=== PATIENT | female | born 2000 | race African-American/Black ===

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

== ENCOUNTER 2018-03-19 10:50 | Emergency (ER) | payer OTHER ==
[2018-03-19 11:49] LABS: BASO % 0.6 % (0.0-1.0); EOS # 0.1 10^3/uL (0.0-0.50); HEMATOCRIT 37.6 % (36.0-47.0); HEMOGLOBIN 12.6 g/dl (12.0-15.5); IMMATURE GRANULOCYTE % 0.5 % (0-3.0); LYMPH # 2.1 10^3/uL (1.5-6.5); LYMPH % 32.9 % (24.0-44.0); MEAN CORPUSCULAR HEMOGLOBIN 30.6 pg (27.0-33.0); MEAN CORPUSCULAR HGB CONC 33.5 g/dl (32.0-36.5); MEAN CORPUSCULAR VOLUME 91.3 fl (80.0-96.0); MONO # 0.6 10^3/uL (0.0-0.8); NEUTROPHILS # 3.6 10^3/uL (1.8-7.7); PLATELET COUNT, AUTOMATED 190 10^3/uL (150-450); RED BLOOD COUNT 4.12 10^6/uL (4.00-5.40); RED CELL DISTRIBUTION WIDTH 12.9 % (11.5-14.5); WHITE BLOOD COUNT 6.5 10^3/uL (4.0-10.0)
[2018-03-19 11:58] LABS: KETONE, URINE AUTO RFX NEGATIVE (NEGATIVE); LEUKOCYTE ESTERASE UR AUTO RFX NEGATIVE (NEGATIVE); MUCUS, URINE RFX SMALL (NEGATIVE); NITRITE, URINE AUTO RFX NEGATIVE (NEGATIVE); RBC, URINE AUTO RFX 1 /HPF (0-3); SPECIFIC GRAVITY UR AUTO RFX 1.017 (1.002-1.035); SQUAM EPITHELIAL CELL UR AURFX 3 /HPF (0-6); WBC, URINE AUTO RFX 0 /HPF (0-3)
[2018-03-19 12:25] LABS: HCG, SERUM QUANTITATIVE 19678 MIU/ML
== END 2018-03-19 13:05 | disposition home or self-care (01) ==
LOC: M ED 10:50
DX: O26.891 Other specified pregnancy related conditions, first trimester (principal); R10.2 Pelvic and perineal pain; Z3A.01 Less than 8 weeks gestation of pregnancy
CPT/HCPCS: 76801

== ENCOUNTER → 2018-03-27 | Outpatient (CLI) | payer OTHER | LOC: M LAB 21:06 | DX: Z01.83 Encounter for blood typing (principal) ==

== ENCOUNTER 2018-09-13 11:25 | Outpatient (CLI) | payer OTHER ==
[~2018-09-13] VITALS: Ht 157.5 cm; Wt 69.9 kg
[2018-09-13] MEDS ORDERED: LR 1,000 ML IV ONE (12:15)
[2018-09-13] MEDS ORDERED: ONDANSETRON 4MG/2ML VIAL (J2405) IV ONE (12:15)
--- NOTE | 2018-09-13 12:23 | IPNPDOC ---
Text Note Date of Service The patient was seen on 09/13/18. NOTE 18 yo at 31+3 weeks gestation presented to L&D with the complaint of n/v and diarrhea. She has had persistent n/v throughout her but it has been worse the last couple days. She reports at around 10 or 11pm last night she started having diarrhea as well. She denies any blood in her stool. She also denies any fevers/chils, SOB, recent travel, or sick contacts. She also denies any consumption of unusual or different foods than usual. She has not taken nausea medication during her at all. She denies any obstetric complaints such as vaginal bleeding, leakage of fluid, or decreased movement. Vitals - VSS, afebrile, normotensive, non tachycardic General - AAOX3, sitting up in bed, NAD Abdomen - Gravid uterus, no fundal tenderness Extremities - No edema FHR: BL 135, moderate variability, +accels, no decels, Cat I tracing Labs: CMP - Unremarkable. Suspect likely viral syndrome as cause of symptoms. No signs of acute bacterial systemic infection. Symptoms improved and resolved after IV hydration and IV antiemetics. She was able to tolerate PO. status remained reassuring. She was discharged home with return precautions. All patient questions answered. DO BRANDEN Levin CHRISTOPHER J. DO Sep 13, 2018 12:23
[2018-09-13 12:25] VITALS: BP 114/61
[2018-09-13 13:05] LABS: ALT/SGPT 23 U/L (12-78); BILIRUBIN,TOTAL 0.4 MG/DL (0.2-1.0); BLOOD UREA NITROGEN 6 MG/DL (7-18); CALCIUM LEVEL 8.3 MG/DL (8.5-10.1); CARBON DIOXIDE LEVEL 23 MEQ/L (21-32); CHLORIDE LEVEL 108 MEQ/L (98-107); CREATININE FOR GFR 0.66 MG/DL (0.55-1.30); GLUCOSE, FASTING 69 MG/DL (70-100); POTASSIUM SERUM 3.6 MEQ/L (3.5-5.1); SODIUM LEVEL 138 MEQ/L (136-145); TOTAL PROTEIN 7.4 GM/DL (6.4-8.2)
== END 2018-09-13 14:13 | disposition home or self-care (01) ==
LOC: M LDO 11:25
PROVIDERS: ATTEND Obstetrics & Gynecology
DX: O21.2 Late vomiting of pregnancy (principal); O99.89 Other specified diseases and conditions complicating pregnancy, childbirth and the puerperium; R19.7 Diarrhea, unspecified; Z3A.31 31 weeks gestation of pregnancy
CPT/HCPCS: 36415; 59025; 80053; 96360; 96361; 96374; G0378; G0463; J2405

== ENCOUNTER 2018-11-04 00:22 | Inpatient (IN) | payer OTHER ==
[~2018-11-04] VITALS: Ht 157.5 cm; Wt 71.6 kg
[2018-11-04] VITALS (40 sets, daily range): BP systolic 98–134; BP diastolic 51–90
[~2018-11-04 00:22] MED LIST: PRENTAB9 PO
[2018-11-04] MEDS ORDERED: LACTATED RINGER'S 1000 ML IV STA (01:34)
[2018-11-04] MEDS ORDERED: BUTORPHANOL 2 MG/ML INJ (J0595) IV ONE (01:45)
[2018-11-04] MEDS ORDERED: PROMETHAZINE INJ 25 MG/ML VIAL (J2550) IV ONE (01:45)
[2018-11-04] MEDS ORDERED: OXYTOCIN DRIP 30 UNITS in APPROPRIATE DILUENT 1 EA IV SCH (01:45)
--- NOTE | 2018-11-04 02:07 | HPEPDOC ---
Obstetrical History & Physical General Date of Admission Nov 04, 2018 at 01:09 History of Present Illness Bridgett is a 18yo with SIUP at 38w6d by 6wk u/s who presents with clear leakage of fluid that started at 2330. Not feeling regular ctx, no vaginal bleeding. Feels movement. No f/c/n/v/CP/SOB. Chief Complaint: LOF, term Information Provided By: Patient Care Care: Good Care Dating Final EDC: Nov 12, 2018 Final EDC by: 1st trimester (US) Antepartum Course Diagnos(e)s Genital HSV 1 diagnosed in (denies prodromal sx, reports never picked up Valtrex at pharmacy but no lesions since the one outbreak in Apr), failed ETOP in this - saw [facility] for consult regarding exposure to mifepristone vs misoprostol and had normal anatomy scan with no further concern, overweight (starting BMI 26.5) Height (inches): 62 Pre- weight (lbs.): 145 Admission Weight (lbs.): 160 Change in Weight (lbs.): 15 Past Medical History Past Obstetrical History : Past Obstetrical History: [employer] History: Herpes simplex virus(HSV) Past Medical History Medical History overweight (BMI 26.5) Surgical History: Denies/None Family History Significant Family History: No pertinent family hx Social History Marital Status: Single Psychosocial History: No pertinent psych hx * Smoker: non-smoker Alcohol: Denies Drugs: denies Imunizations Tdap status: current Influenza Status: current Allergies Coded Allergies: No Known Allergies (Unverified , 11/04/18) Medications Scheduled Multivitamins/ ( 27-0.8 mg) 1 Tab Tab, 1 TAB PO DAILY Physical Examination Physical Examination GENERAL: Alert and oriented times three. ABDOMEN: Gravid and non-tender to touch. FETUS: Is vertex (VTX) by sterile vaginal examination (SVE) EXTREMITIES: No edema. SSE: thorough inspection reveals no HSV lesions on labia/perineum/antwan-anal region nor within the vaginal vault or on the cervix itself. Grossly ruptured clear fluid, nitrazine pos, positive pooling with vernix Laboratory Data 24H LABS Laboratory Tests 2 11/04/18 01:14: Serology Scanned Report Hepatitis B Testing Pertinent Laboratoy Data Blood Type: O+ RBC Antibody Screen: Negative HIV: Negative Hepatitis B: Negative Hepatitis C: Unknown Rapid Plasma Reagin: Nonreactive Rubella: Immune Varicella: Unknown Chlamydia/Gonorrhea: Negative Group B Streptococcus: Negative Anatomy Ultrasound Ultrasound Date: Jul 01, 2018 Placenta Location: Posterior Normal Anatomy: Yes Placenta Previa: No Steroid Therapy Steroid Therapy: No Vaginal Examination Dilation: 1cm Effacement: 70% Station: -2 Cervical Consistency: Soft Cervical Position: Posterior Presentation: Cephalic presentation Assessment Heart Rate (FHR): 140 Variability: Moderate Accelerations: Positive Decelerations: None Tocometer Contractions: Yes Frequency: irregular Strength: palpated as mild Assessment/Plan Assessment Bridgett is a 18yo with SIUP at 38w6d by 6wk u/s with PROM, clear, 2330. SCE /-2, irregular non-painful ctx. Cat I FHRT. Grossly ruptured, nitrazine positive with pooling. Vitals wnl, benign exam. GBS negative. SSE reveals no e/o of HSV lesions. 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 Exterminator and consent. Diet: clear liquids Group B Streptococcus (GBS) negative Labs and intravenous (IV) per unit protocol. Counseled on Pitocin and induction of labor (IOL). Lactated Ringers (LR): Bolus 1000 mL, then at 125 mL/hr. Anticipate normal spontaneous delivery () Stadol 2mg IV x1 with phenergan 25mg IV x1 in early labor, then candidate for epidural in active labor MD Tracey Warner Katrina D MD Nov 04, 2018 01:56
[2018-11-04 02:26] LABS: HEMATOCRIT 31.3 % (36.0-47.0); HEMOGLOBIN 9.9 g/dl (12.0-15.5); MEAN CORPUSCULAR HEMOGLOBIN 27.9 pg (27.0-33.0); MEAN CORPUSCULAR HGB CONC 31.6 g/dl (32.0-36.5); MEAN CORPUSCULAR VOLUME 88.2 fl (80.0-96.0); PLATELET COUNT, AUTOMATED 225 10^3/uL (150-450); RED BLOOD COUNT 3.55 10^6/uL (4.00-5.40); WHITE BLOOD COUNT 8.8 10^3/uL (4.0-10.0)
[2018-11-04] MEDS: LR 1,000 ML IV SCH ×3 (03:22→14:30)
--- NOTE | 2018-11-04 11:30 | IPNPDOC ---
Text Note Date of Service The patient was seen on 11/04/18. NOTE SBAR from Dr Webb this AM at 0730 PROM at ~MN NST Cat 1, Pit at 10 mu/min Cx /-2 OK for epidural Recheck in 3-4 hrs, sooner prn Sessions VS,Shahram, I+O VS, Shahram I+O Laboratory Tests 11/04/18 02:19 Red Blood Count 3.55 L, Mean Corpuscular Volume 88.2, Mean Corpuscular Hemoglobin 27.9, Mean Corpuscular Hemoglobin Concent 31.6 L, Red Cell Distribution Width 13.9 Vital Signs Date Time Temp Pulse Resp B/P (MAP) Pulse Ox O2 Delivery O2 Flow Rate FiO2 11/04/18 07:26 88 116/64 (81) 11/04/18 04:22 18 SESSIONS,GHASSAN Nicholas MD Nov 04, 2018 11:30
[2018-11-04] MEDS ORDERED: FENTANYL 2MCG/ML ROPIVACAINE 0.2% IN 0.9% NACL 100ML IVBAG As Ordered ONE (11:47)
[2018-11-04] MEDS ORDERED: REFRIGERATOR IV KEYS XX PRN (11:54)
[2018-11-04] MEDS ORDERED: EPIDURAL/PCA KEYS XX PRN (11:54)
[2018-11-04] MEDS ORDERED: ePHEDrine SULFATE 25 MG/5 ML(5MG/ML) SYRINGE IV PRN (11:54)
[2018-11-04] MEDS ORDERED: NALOXONE INJ 0.4 MG/1 ML VIAL (J2310) IV PRN (11:54)
[2018-11-04] MEDS ORDERED: diphenhydrAMINE INJ 50MG/ML VIAL (J1200) IV PRN (11:54)
[2018-11-04] MEDS ORDERED: ONDANSETRON 4MG/2ML VIAL (J2405) IV PRN (11:54)
[2018-11-04] MEDS ORDERED: LACTATED RINGER'S 1000 ML IV PRN (11:54)
[2018-11-04] MEDS ORDERED: EPIDURAL COMMENT XX SCH (11:54)
[2018-11-04] MEDS: FENTANYL/ROPIVACAINE/NACL BAG 100 ML EPIDURAL SCH ×2 (12:22→18:20)
--- NOTE | 2018-11-04 15:55 | IPNPDOC ---
Text Note Date of Service The patient was seen on 11/04/18. NOTE FHT Cat 1, some early's present Pit at 14 mu/min Cx 6-7//-1 Doing well, recheck in 2 hrs, sooner prn Sessions VS,Shahram, I+O VS, Shahram I+O Laboratory Tests 11/04/18 02:19 Red Blood Count 3.55 L, Mean Corpuscular Volume 88.2, Mean Corpuscular Hemoglobin 27.9, Mean Corpuscular Hemoglobin Concent 31.6 L, Red Cell Distribut ion Width 13.9 Vital Signs Date Time Temp Pulse Resp B/P (MAP) Pulse Ox O2 Delivery O2 Flow Rate FiO2 11/04/18 07:26 88 116/64 (81) 11/04/18 04:22 18 SESSIONS,GHASSAN Nicholas MD Nov 04, 2018 15:55
--- NOTE | 2018-11-04 18:50 | IPNPDOC ---
Text Note Date of Service The patient was seen on 11/04/18. NOTE NST Cat 1 Pit at 16 mu/min Cx RN check about 1 hour ago was similar dilation but higher station Plan on incr pitocin per SOP and recheck at 1999, d/w RN Sessions VS,Shahram, I+O VSShahram I+O Laboratory Tests 11/04/18 02:19 Red Blood Count 3.55 L, Mean Corpuscular Volume 88.2, Mean Corpuscular Hemoglobin 27.9, Mean Corpuscular Hemoglobin Concent 31.6 L, Red Cell Distribution Width 13.9 Vital Signs Date Time Temp Pulse Resp B/P (MAP) Pulse Ox O2 Delivery O2 Flow Rate FiO2 11/04/18 07:26 88 116/64 (81) 11/04/18 04:22 18 SESSIONS,GHASSAN Nicholas MD Nov 04, 2018 18:50
--- NOTE | 2018-11-04 20:40 | IPNPDOC ---
Text Note Date of Service The patient was seen on 11/04/18. NOTE Pit at 18 mu/min FHT Cat 2, slight incr in BL, also intermittent lates, nothing recurrent. Periods if minmal louis, mostly moderate Cx 10/100/+1/LOP, narrow pelvis noted. Start pushing. If no signif change in station in 1-2 hours, will rec . Also d/w pt possibilities of vacuum assist, epis, etc. Sessions VS,Shahram, I+O VSShahram I+O Laboratory Tests 11/04/18 02:19 Red Blood Count 3.55 L, Mean Corpuscular Volume 88.2, Mean Corpuscular Hemoglobin 27.9, Mean Corpuscular Hemoglobin Concent 31.6 L, Red Cell Distri bution Width 13.9 Vital Signs Date Time Temp Pulse Resp B/P (MAP) Pulse Ox O2 Delivery O2 Flow Rate FiO2 11/04/18 19:28 99.1 100 16 117/57 (77) SESSIONS,GHASSAN Nicholas MD Nov 04, 2018 20:40
[2018-11-04] MEDS ORDERED: BICITRA 30ML SOLN UDC PO ONE (23:45)
[2018-11-04] MEDS ORDERED: AZITHROMYCIN INJ 500 MG, VIAL MATE ADAPTER 1 EACH in D5W 250 ML IV ONE (23:45)
--- NOTE | 2018-11-04 23:51 | IPNPDOC ---
Text Note Date of Service The patient was seen on 11/04/18. NOTE Pushed very well now for 3 hours At 1.5 hrs pushing had brought the bony vtx to +2 from +1, great effort At 3 hrs, there is barely visible caput with pushing but it is soft tissue only, the bony vtx is still +2, LOP Mom very upset, but I.C. obtained for PLTCS due to arrest of descent OR team mobilizing Sessions VS,Shahram, I+O VSShahram I+O Laboratory Tests 11/04/18 02:19 Red Blood Count 3.55 L, Mean Corpuscular Volume 88.2, Mean Corpuscular Hemoglobin 27.9, Mean Corpuscular Hemoglobin Concent 31.6 L, Red Cell Distribu tion Width 13.9 Vital Signs Date Time Temp Pulse Resp B/P (MAP) Pulse Ox O2 Delivery O2 Flow Rate FiO2 11/04/18 19:28 99.1 100 16 117/57 (77) SESSIONS,GHASSAN Nicholas MD Nov 04, 2018 23:51
[2018-11-05] VITALS (7 sets, daily range): BP systolic 116–127; BP diastolic 56–71
[2018-11-05] MEDS ORDERED: diphenhydrAMINE INJ 50MG/ML VIAL (J1200) IV PRN (00:35)
[2018-11-05] MEDS ORDERED: METOCLOPRAMIDE INJ 10MG/2ML VIAL (J2765) IV PRN ×2 (00:35→01:15)
[2018-11-05] MEDS ORDERED: NALOXONE INJ 0.4 MG/1 ML VIAL (J2310) IV PRN ×2 (00:35)
[2018-11-05] MEDS ORDERED: ONDANSETRON 4MG/2ML VIAL (J2405) IV PRN ×2 (00:35→01:15)
[2018-11-05] MEDS ORDERED: SODIUM BICARBONATE 8.4% INJ 50MEQ 50 ML VIAL As Ordered ONE (00:46)
[2018-11-05] MEDS ORDERED: KETOROLAC 60 MG/2 ML VIAL (J1885) As Ordered ONE (00:46)
[2018-11-05] MEDS ORDERED: dexameTHASONE 4 MG/ML 1ML VIAL (J1100) As Ordered ONE (00:46)
[2018-11-05] MEDS ORDERED: ONDANSETRON 4MG/2ML VIAL (J2405) As Ordered ONE (00:46)
[2018-11-05] MEDS ORDERED: PROPOFOL 200 MG/20 ML VIAL As Ordered ONE (00:46)
[2018-11-05] MEDS ORDERED: LIDOCAINE 2% W/EPIN INJ 20ML **PRES FREE As Ordered ONE (00:46)
[2018-11-05] MEDS ORDERED: OXYTOCIN INJ 10 UNITS/ML VIAL (J2590) As Ordered ONE (00:46)
[2018-11-05] MEDS ORDERED: MORPHINE PRES-FREE INJ 10 MG/10 ML VIAL (J2274) As Ordered ONE (00:46)
[2018-11-05] MEDS ORDERED: PHENYLephrine HCL 500 MCG/5 ML (100MCG/ML) SYRINGE (J2370) As Ordered ONE (01:05)
[2018-11-05] MEDS ORDERED: OXYTOCIN DRIP 30 UNITS in APPROPRIATE DILUENT 1 EA IV SCH (01:14)
[2018-11-05] MEDS ORDERED: MEASLES,MUMPS,RUBELLA VACCINE INJ (MMR-II) (90707) SC SCH (01:15)
[2018-11-05] MEDS ORDERED: fentaNYL 100 MCG/2 ML INJECTION (J3010) IV PRN (01:15)
[2018-11-05] MEDS ORDERED: RHOGAM 300 MCG (1500 IU) INJ (J2790) IM SCH (01:15)
[2018-11-05] MEDS ORDERED: fentaNYL 100 MCG/2 ML INJECTION (J3010) As Ordered ONE (01:57)
[2018-11-05] MEDS ORDERED: OXYTOCIN 30 UNITS IN 0.9% NaCl 500ML IV BAG (J2590) As Ordered ONE (02:07)
[2018-11-05] MEDS: NALBUPHINE HCL 10 MG/ML AMP (J2300) IV PRN ×2 (03:50→13:24)
[2018-11-05] MEDS: KETOROLAC 30 MG/ML VIAL (J1885) IV SCH ×3 (07:25→20:08)
[2018-11-05] MEDS: DOCUSATE SODIUM 100 MG CAP PO SCH ×2 (07:45→20:09)
[2018-11-05] MEDS: PRENATAL VITAMINS CHEWABLE TABLET PO SCH (07:46)
--- NOTE | 2018-11-05 16:30 | RO ---
DATE OF PROCEDURE: 11/04/2018 PREOPERATIVE DIAGNOSIS: Arrest of descent after 3 hours of pushing. POSTOPERATIVE DIAGNOSIS: Arrest of descent after 3 hours of pushing, confirmed left occiput posterior (LOP). PROCEDURE: Primary low transverse section. SURGEON: Dr. Ren Granda CEILING CLEANER: Lay Ups Assembler Amina Soliz who was essential in assisting with retraction of all tissue layers, delivery of the infant and closure of all tissue layers. ANESTHESIA: Epidural. ESTIMATED BLOOD LOSS: 500 mL. DRAINS: 150 mL in the Faulkner catheter at the end of the procedure. FLUIDS REPLACED: Lactated Ringer's, 1100 mL. PREOP ANTIBIOTICS: Ancef 2 grams and azithromycin 500 mg, IV both. SPECIMENS: None. FINDINGS: Pfannenstiel skin incision, low transverse uterine incision, in LOP position, firmly wedged into the pelvis, scores 7 and 8 with a weight of 3230 grams or 7 pounds 2 ounces. INDICATION: The patient was admitted with premature rupture of membranes. She was placed on Pitocin. She progressed to complete, complete, +1, pushed to only +2 station after 3 hours and was LOP. I did not think that her pelvis was adequate for an operative vaginal delivery, neither did I think that the station was low enough to safely attempt an operative vaginal delivery. Therefore, I recommended a primary low transverse delivery. DESCRIPTION OF OPERATION: After informed consent was obtained and the operating room (OR) team was mobilized, the patient was taken to the operating room after a quick prep was done and the Faulkner catheter was placed. She was then placed in dorsal supine position with a leftward tilt after her epidural was bolused. She was prepped and draped in a normal sterile fashion. Prior to prepping and draping, heart tones were normal. After we confirmed that the epidural was indeed adequate, I performed a Pfannenstiel skin incision down to the layer of the fascia, which was nicked in the midline and extended bilaterally the extent of the skin incision. Blanca clamps were placed on the superior and inferior aspects of the fascial incision, which were tented up and the underlying rectus muscles were dissected off sharply. The rectus muscles were in the midline. With my digit, I was able to breech the peritoneum and with no scar tissue present, we stretched the peritoneal window to adequacy. Bladder blade was placed, bladder flap was easily created, and a low transverse uterine incision was performed. This was then stretched to adequacy, inserted my hand carefully along the baby's forehead and was able to negate the suction present at the head into the deep pelvis with a straight cephalad motion without flexing my wrist, then delivered the infant's head through the uterine incision and with fundal pressure from above, delivered each shoulder. Infant was noted to be in good shape with spontaneous cry and good tone. Cord was clamped times two and cut and cord blood samples obtained for typing. Placenta was delivered with traction on the cord and fundal massage with my left hand. Pitocin was running wide open and tone was adequate. Then delivered the uterus through the abdominal wall and placed it on the abdomen, wrapped it in a warm sponge and I cleared the clots and debris from the uterine cavity with two dry sponges. There were no significant extensions of the uterine incision, and I closed the uterine incision from left to right with a running locked suture of #0 Vicryl. I then imbricated from left to right with a running suture of #0 Monocryl. Excellent hemostasis noted. We then irrigated behind the uterus, replaced the uterus to its anatomical state, cleared both colic gutters bilaterally, inspected the uterine incision one final time and confirmed hemostasis. Peritoneum was then closed with a running suture of #2-0 Vicryl. The rectus bellies were intact and hemostatic, and the fascia was closed from left to right with a running suture of #0 Vicryl. Subcutaneous tissues were copiously irrigated, reapproximated with #2-0 Vicryl and the skin was closed with a running subcuticular #4-0 Monocryl from left to right. Optifoam was placed over the incision. A bimanual exam was then performed with the legs frogged. The uterus was firm and at U -1 and a moderate amount of clots and debris were discharged from the lower uterine segment and vagina. All counts including sponge, needle and instruments were correct throughout the case and at the end of the case.
[2018-11-05] MEDS: PERCOCET 5MG/325MG TAB PO PRN (20:52)
[2018-11-06 02:00] VITALS: BP 119/76
[2018-11-06] MEDS: PERCOCET 5MG/325MG TAB PO PRN ×5 (02:03→21:25)
[2018-11-06] MEDS: IBUPROFEN 800 MG TAB PO SCH ×3 (04:29→18:51)
[2018-11-06 06:00] VITALS: BP 114/58
[2018-11-06 07:14] LABS: HEMATOCRIT 27.8 % (36.0-47.0); HEMOGLOBIN 8.7 g/dl (12.0-15.5); MEAN CORPUSCULAR HEMOGLOBIN 27.7 pg (27.0-33.0); MEAN CORPUSCULAR HGB CONC 31.3 g/dl (32.0-36.5); MEAN CORPUSCULAR VOLUME 88.5 fl (80.0-96.0); PLATELET COUNT, AUTOMATED 187 10^3/uL (150-450); RED BLOOD COUNT 3.14 10^6/uL (4.00-5.40)
[2018-11-06] MEDS: DOCUSATE SODIUM 100 MG CAP PO SCH ×2 (08:05→21:25)
[2018-11-06] MEDS: PRENATAL VITAMINS CHEWABLE TABLET PO SCH (08:05)
[2018-11-06 10:00] VITALS: BP 113/59
--- NOTE | 2018-11-06 10:06 | IPNPDOC ---
Text Note Date of Service The patient was seen on 11/06/18. NOTE POD1 PLTCS for arrest of descent States feeling well, pain controlled with prescribed meds. Baby bonding and feeding well. No heavy VB. Lochia slowing. Ambulatory. Tolerating PO without issues. Voiding well X1 since calderon out. No CP/LP/SOB. VSSAF NAD A&O RRR CTAB LE no C/C/E Ut at U-2, firm Bandage intact with no strikethru CBC appropr this AM a/p: Doing well. Cont routine postop care. D/C likely tomorrow. Sessions VSShahram, I+O VSShahram I+O Laboratory Tests 11/06/18 06:45 Red Blood Count 3.14 L, Mean Corpuscular Volume 88.5, Mean Corpuscular Hemoglobin 27.7, Mean Corpuscular Hemoglobin Concent 31.3 L, Red Cell Distribution Width 14.1 Vital Signs Date Time Temp Pulse Resp B/P (MAP) Pulse Ox O2 Delivery O2 Flow Rate FiO2 11/06/18 08:06 16 11/06/18 06:00 97.2 75 114/58 (76) 11/05/18 22:00 98 I&O- Last 24 Hours up to 6 AM 11/06/18 05:59 Output Total 2450 ml Balance -2450 ml SESSIONS,GHASSAN Nicholas MD Nov 06, 2018 10:06
[2018-11-06 14:00] VITALS: BP 106/58
[2018-11-06 18:00] VITALS: BP 109/56
[2018-11-06 22:07] VITALS: BP 125/67
[2018-11-07 02:34] VITALS: BP 106/57
[2018-11-07] MEDS: IBUPROFEN 800 MG TAB PO SCH ×3 (03:44→18:31)
[2018-11-07] MEDS: PERCOCET 5MG/325MG TAB PO PRN ×4 (05:38→23:52)
[2018-11-07 05:43] VITALS: BP 113/59
--- NOTE | 2018-11-07 07:19 | IPNPDOC ---
Progress Note Date of Service: Nov 07, 2018 Day#: 3 Progress Note PPD 3 SUBJECT: Bridgett is a 18yo [id number] s/p uncomplicated PLTCS on 11/04/18 for arrest of descent, doing well /post-op day #3. She has been ambulating without lightheadedness, voiding spontaneously without issue. Tolerating regular diet without n/v. Breast feeding without issue. Reports lochia is minimal. Pain is well controlled with medications. She denies f/c/cp/sob. Baby recently put under bili lights and will need continued bili lights today. OBJECTIVE: VITAL SIGNS: Within normal limits, afebrile. Alert and oriented times three. Abdomen: Fundus firm at U-2. Soft, appropriately tender to palpation. Pfannensteil incision covered by clean/dry dressing with no strike-through Extremities: no pain with palpation of calves Labs: pre-op H/H: 9.9/31.3 post-op H/H: 8.7/27.8 ASSESSMENT: Bridgett is a 18yo [id number] s/p uncomplicated PLTCS on 11/04/18 for arrest of descent, doing well /post-op day #3. Vitals within normal limits, afebrile, hemodynamically stable with no evidence of infection. PLAN: 1. Routine /post-op care 2. Percocet and motrin for pain 3. Encourage breast feeding and ambulation. 4. Vitals q4hr 5. Regular diet 6. likely discharge home tomorrow Dr. Brandie Webb MD VS, I&O, 24H, Fishbone Vital Signs/I&O Vital Signs Date Time Temp Pulse Resp B/P (MAP) Pulse Ox O2 Delivery O2 Flow Rate FiO2 11/07/18 06:44 18 11/07/18 05:43 98.0 82 113/59 (77) 11/06/18 14:00 100 Brandie Webb MD Nov 07, 2018 07:19
[2018-11-07] MEDS: PRENATAL VITAMINS CHEWABLE TABLET PO SCH (08:03)
[2018-11-07] MEDS: DOCUSATE SODIUM 100 MG CAP PO SCH ×2 (08:03→20:52)
[2018-11-07 18:03] VITALS: BP 110/58
[2018-11-08] MEDS: IBUPROFEN 800 MG TAB PO SCH ×2 (03:17→10:54)
[2018-11-08] MEDS: PERCOCET 5MG/325MG TAB PO PRN ×2 (05:01→10:54)
[2018-11-08 05:57] VITALS: BP 121/70
[2018-11-08] MEDS: DOCUSATE SODIUM 100 MG CAP PO SCH (07:54)
[2018-11-08] MEDS: PRENATAL VITAMINS CHEWABLE TABLET PO SCH (07:55)
--- NOTE | 2018-11-08 08:55 | IPNPDOC ---
Text Note Date of Service The patient was seen on 11/08/18. NOTE POD3 PLTCS for arrest of descent States feeling well, pain controlled with prescribed meds. Baby bonding and feeding well. No heavy VB. Lochia slowing. Ambulatory. Tolerating PO without issues. Voiding well. No CP/LP/SOB. VSSAF NAD A&O RRR CTAB LE no C/C/E Ut at U-2, firm Bandage intact with no strikethru a/p: Doing well. Cont routine postop care. D/C today, to boarding if baby stays. Sessions VS,Shahram, I+O VSShahram, I+O Vital Signs Date Time Temp Pulse Resp B/P (MAP) Pulse Ox O2 Delivery O2 Flow Rate FiO2 11/08/18 07:54 16 11/08/18 05:57 98.3 86 121/70 (87) 11/06/18 14:00 100 SESSIONS,GHASSAN Nicholas MD Nov 08, 2018 08:55
--- NOTE | 2018-11-08 08:58 | DS.PDOC ---
Discharge Summary General Date of Admission Nov 04, 2018 at 01:09 Date of Discharge [id number] Discharge Summary ADMITTING DIAGNOSES: SROM DISCHARGE DIAGNOSES: PLTCS for arrest of descent HOSPITAL COURSE: SROM, labor course a bit prolonged but progressed to C/C, never descended past +2 station despite 3 hours excellent pushing, and was OP. delivery uncomplicated, firmly wedged into the pelvis. Postp artum course uncomplicated. DISCHARGE MEDICATIONS: Motrin, Lanolin, Percocet, Colace DISCHARGE INSTRUCTIONS: Nothing in the vagina for 6 weeks. No driving for 2 weeks. No bathing for 4 weeks, shower only. F/U in OBGYN clinic in 1-2 weeks for incision check and routine follow-up in 6-8 weeks. Sessions Vital Signs/I&Os Vital Signs Date Time Temp Pulse Resp B/P (MAP) Pulse Ox O2 Delivery O2 Flow Rate FiO2 11/08/18 07:54 16 11/08/18 05:57 98.3 86 121/70 (87) 11/06/18 14:00 100 Discharge Medications Scheduled Multivitamins/ ( 27-0.8 mg) 1 Tab Tab, 1 TAB PO DAILY, (Reported) SESSIONS,GHASSAN Nicholas MD Nov 08, 2018 08:58
[2018-11-08] MEDS ORDERED: OXYC1TAB23 PO (11:54)
[2018-11-08] MEDS ORDERED: IBUP-1114 PO (11:54)
[2018-11-08] MEDS ORDERED: COLA100C5 PO (11:54)
== END 2018-11-08 17:00 | disposition home or self-care (01) | DRG 772 ==
LOC: M LDO 00:22 → M LDI 01:09 → M OBS 11-05 03:07
PROVIDERS: ADMIT Obstetrics & Gynecology; ATTEND Obstetrics & Gynecology
PROC: 10D00Z1 Extraction of Products of Conception, Low, Open Approach (ICD-10-PCS; principal; 2018-11-04)
DX: O32.4XX0 Maternal care for high head at term, not applicable or unspecified (principal); O98.311 Other infections with a predominantly sexual mode of transmission complicating pregnancy, first trimester; Z37.0 Single live birth; Z3A.38 38 weeks gestation of pregnancy; A60.09 Herpesviral infection of other urogenital tract

== ENCOUNTER 2019-09-01 07:39 | Emergency (ER) | payer OTHER ==
[~2019-09-01] VITALS: Ht 157.5 cm; Wt 64.9 kg
[~2019-09-01 07:39] MED LIST changes: +COLA100C5 PO; +IBUP-1114 PO; +OXYC1TAB23 PO
--- NOTE | 2019-09-01 10:48 | REP ---
CHEST, TWO VIEWS: There is no evidence of acute infiltrate. No pleural effusion is seen. The heart is normal in size. The mediastinal silhouette is unremarkable. The visualized osseous structures are intact. IMPRESSION: No acute pulmonary disease. Electronically Signed by Ren Garcia MD 09/03/2019 11:38 A
[2019-09-01] MEDS ORDERED: CLAR500T PO (11:05)
[2019-09-01 11:09] VITALS: BP 119/71
== END 2019-09-01 11:11 | disposition home or self-care (01) ==
LOC: M ED 07:39
DX: J01.00 Acute maxillary sinusitis, unspecified (principal); J03.90 Acute tonsillitis, unspecified